=== PATIENT | male | born 1990 | race African-American/Black ===

== ENCOUNTER 2016-09-25 13:19 | Emergency (ER) | payer OTHER ==
[2016-09-25 13:59] VITALS: BP 149/82
[2016-09-25] MEDS ORDERED: cefTRIAXone VIAL(*) 250 MG VIAL IM ONE (14:49)
[2016-09-25] MEDS ORDERED: Lidocaine 1% MPF* 2 ML VIAL INJ ONE (14:50)
[2016-09-25] MEDS ORDERED: Azithromycin TAB* 250 MG PO ONE (14:50)
--- NOTE | 2016-09-25 15:07 | UC ---
Danna Colin Alok, scribed for Tunde Chapa MD on 09/25/16 at 1451 . Complaint Male HPI - HPI Summary HPI Summary: 26M presents to the [facility] seeking evaluation for clamydia. Pt states that his sexual partner was dx with clamydia one day ago. Pt denies dysuria. PMHx includes h/o heart murmur. Pt has NKDA. - History of Current Complaint Chief Complaint: UCGeneralIllness Stated Complaint: STD TESTING Time Seen by Provider: 09/25/16 14:40 Hx Obtained From: Patient Severity Initially: Moderate Severity Currently: Moderate Aggravating Factor(s): Nothing Alleviating Factor(s): Nothing Associated Signs And Symptoms: Negative: Dysuria - Allergies/Home Medications Allergies/Adverse Reactions: Allergies Allergy/AdvReac Type Severity Reaction Status Date / Time No Known Allergies Allergy Verified 05/15/12 20:19 PMH/Surg Hx/FS Hx/Imm Hx - Surgical History Surgical History: None - Family History Known Family History: Positive: Hypertension - Social History Occupation: Unemployed Lives: With Family Alcohol Use: None Substance Use Type: None Substance Use Comment - Amount & Last Used: recently quit smokig K2 (synthetic marijuana) Smoking Status (MU): Light Every Day Tobacco Smoker Type: Cigars Have You Smoked in the Last Year: Yes Review of Systems Constitutional: Negative Genitourinary: Hematuria All Other Systems Reviewed And Are Negative: Yes Physical Exam Triage Information Reviewed: Yes Appearance: Well-Appearing, No Pain Distress Vital Signs: Initial Vital Signs Temp 98.4 F 09/25/16 13:57 Pulse 76 09/25/16 13:57 Resp 16 09/25/16 13:57 BP 149/82 09/25/16 13:57 Pulse Ox 98 09/25/16 13:57 Vital Signs Reviewed: Yes Eyes: Positive: Other: - EOMI, DELON ENT: Positive: Normal ENT inspection Neck: Positive: Supple, Nontender Respiratory: Positive: Lungs clear, Normal breath sounds Cardiovascular: Positive: RRR Abdomen Description: Positive: Nontender, Soft Bowel Sounds: Positive: Present Musculoskeletal Exam: Normal Musculoskeletal: Positive: Strength Intact, ROM Intact Neurological Exam: Normal Neurological: Positive: Alert, Other: - Sensory/motor intact Psychological: Positive: Other: - affect/mood appropriate Skin: Positive: Other - warm, dry, skin color reflects adequate perfusion. blood tinged urine at the [facility] Complaint Male Course/Dx - Course Course Of Treatment: Patient medications reviewed this visit. TREATED IN CLINIC WITH AZITHROMYCIN 1GM AND ROCEPHIN 250MG IM. NO SEX FOR 7 DAYS. - Differential Dx/Diagnosis Provider Diagnoses: URETHRITIS WITH POSITIVE CHLAMYDIA PARTNER. Discharge - Discharge Plan Condition: Stable Disposition: HOME Patient Education Materials: Chlamydia (ED) Referrals: No Primary Care Phys,NOPCP [Primary Care Provider] - Additional Instructions: FOLLOW UP WITH YOUR DOCTOR. NO SEX FOR 7 DAYS. GET RECHECKED FOR ANY WORSENING OF YOUR CONDITION OR QUESTIONS OR CONCERNS. The documentation as recorded by the Danna tran Alok accurately reflects the service I personally performed and the decisions made by me, Tunde Chapa MD.
== END 2016-09-25 15:15 | disposition home or self-care (01) ==
LOC: UCEAST 13:19
DX: N34.2 Other urethritis (principal); Z20.2 Contact with and (suspected) exposure to infections with a predominantly sexual mode of transmission; Z72.0 Tobacco use
CPT/HCPCS: 87491; 87591; 99211; A9270-GY; G0463; J0696

== ENCOUNTER 2017-06-15 10:25 | Emergency (ER) | payer SELFPAY ==
[2017-06-15 10:58] VITALS: BP 137/92
[2017-06-15] MEDS ORDERED: Lidocaine 1% MPF* 2 ML VIAL INJ ONE (12:06)
[2017-06-15] MEDS ORDERED: cefTRIAXone VIAL(*) 250 MG VIAL IM ONE (12:06)
[2017-06-15] MEDS ORDERED: Azithromycin TAB* 250 MG PO ONE (12:06)
--- NOTE | 2017-06-15 12:10 | UC ---
Complaint Male HPI - HPI Summary HPI Summary: PT HAD UNPROTECTED SEX ABOUT 2 WEEKS AGO. YESTERDAY NOTICED SOME URINARY BURNING AND FREQUENCY. STATES HE HAS HAD SOME PENILE D/C WELL. IS CONCERNED ABOUT GC/CHLAMYDIA. - History of Current Complaint Chief Complaint: UCGU Stated Complaint: PERSONAL Time Seen by Provider: 06/15/17 11:55 Hx Obtained From: Patient Onset/Duration: Gradual Onset, Lasting Weeks, Still Present Timing: Constant Severity Initially: Moderate Severity Currently: Moderate Pain Intensity: 1 Pain Scale Used: 0-10 Numeric Location: Penis Character: Burning Aggravating Factor(s): Voiding Alleviating Factor(s): Nothing Associated Signs And Symptoms: Positive: Back Pain, Dysuria, Penile Discharge. Negative: Fever, Nausea, Penile Swelling - Allergies/Home Medications Allergies/Adverse Reactions: Allergies Allergy/AdvReac Type Severity Reaction Status Date / Time No Known Allergies Allergy Verified 06/15/17 10:58 Home Medications: Home Medications NK [No Home Medications Reported] 06/15/17 [History Confirmed 06/15/17] PMH/Surg Hx/FS Hx/Imm Hx Previously Healthy: Yes - Surgical History Surgical History: None Surgery Procedure, Year, and Place: denies - Family History Known Family History: Positive: Hypertension - Social History Alcohol Use: None Substance Use Type: Marijuana Substance Use Comment - Amount & Last Used: quit smokig K2 (synthetic marijuana ) in 2010 Smoking Status (MU): Former Smoker Type: Cigars Have You Smoked in the Last Year: Yes Review of Systems Constitutional: Negative Skin: Negative Respiratory: Negative Cardiovascular: Negative Gastrointestinal: Negative Genitourinary: Dysuria, Frequency, Vaginal/Penile Discharge All Other Systems Reviewed And Are Negative: Yes Physical Exam Triage Information Reviewed: Yes Appearance: Well-Appearing, No Pain Distress, Well-Nourished Vital Signs: Initial Vital Signs Temp 98.1 F 06/15/17 10:52 Pulse 99 06/15/17 10:52 Resp 18 06/15/17 10:52 BP 137/92 06/15/17 10:52 Pulse Ox 100 06/15/17 10:52 Vital Signs Reviewed: Yes Eyes: Positive: Conjunctiva Clear ENT: Positive: Hearing grossly normal Neck: Positive: Supple Respiratory: Positive: No respiratory distress, No accessory muscle use Cardiovascular: Positive: Pulses Normal Abdomen Description: Positive: Nontender, Soft. Negative: CVA Tenderness (R), CVA Tenderness (L), Distended, Guarding Male Genital Exam: Positive: Normal Genitalia. Negative: Inguinal Tenderness, Testicular Tenderness (R), Testicular Tenderness (L), Urethral Discharge Musculoskeletal: Positive: No Edema Neurological: Positive: Alert Psychological: Positive: Age Appropriate Behavior Skin: Negative: rashes Diagnostics - Laboratory Diagnostic Studies Completed/Ordered: URINE DIP SP. GR. 1.015, 1+ KETONES, 1+ PROTEIN, 1+ BILI, TRACE BLOOD Complaint Male Course/Dx - Course Course Of Treatment: URINE SENT FOR TESTING FOR GC/CHLAMYDIA. PT DECLINES TESTING FOR HIV OR SYPHILIS. EMPIRIC TX WITH AZITH AND ROCEPHIN TODAY. F/U PCP. - Differential Dx/Diagnosis Provider Diagnoses: EMPIRIC TX FOR STD/HIGH RISK SEXUAL ACTIVITY Discharge - Sign-Out/Discharge Documenting (check all that apply): Discharge - Discharge Plan Condition: Stable Disposition: HOME Patient Education Materials: Sexually Transmitted Diseases (ED) Referrals: No Primary Care Phys,NOPCP [Primary Care Provider] - Additional Instructions: You have been treated empirically with 250 mg of ceftriaxone and 1 g of azithromycin. This will cover for both gonorrhea and chlamydia. Urine has been sent for culture. No sex for at least 7 days. Notify all sexual partners or possible exposure. Use condoms in the future. You have declined testing for HIV and syphilis today. CALL THE NUMBER BELOW FOR ASSISTANCE IN ESTABLISHING WITH A PCP An additional resource available to assist in finding the appropriate physician for your health care needs is the [facility] ([facility]). You may contact them by calling [phone]. - Billing Disposition and Condition Condition: STABLE Disposition: HOME
== END 2017-06-15 12:25 | disposition home or self-care (01) ==
LOC: UCEAST 10:25
DX: Z72.51 High risk heterosexual behavior (principal); R36.9 Urethral discharge, unspecified; M54.9 Dorsalgia, unspecified; R30.0 Dysuria; R35.0 Frequency of micturition; Z11.3 Encounter for screening for infections with a predominantly sexual mode of transmission; Z87.891 Personal history of nicotine dependence
CPT/HCPCS: 81003; 87491; 87591; 96372; 99212; A9270-GY; G0463; J0696

== ENCOUNTER 2017-10-16 10:15 | Emergency (ER) | payer MEDICAID ==
[2017-10-16 10:30] VITALS: BP 129/83
[2017-10-16] MEDS ORDERED: Azithromycin TAB* 250 MG PO ONE (11:30)
[2017-10-16] MEDS ORDERED: cefTRIAXone VIAL(*) 1,000 MG VIAL IM ONE (11:31)
[2017-10-16] MEDS ORDERED: cefTRIAXone VIAL(*) 250 MG VIAL IM ONE (11:32)
[2017-10-16] MEDS ORDERED: Lidocaine 1% MPF* 2 ML VIAL INJ ONE (11:33)
[2017-10-16] MEDS ORDERED: cefTRIAXone VIAL(*) 250 MG VIAL ONE (11:35)
[2017-10-16] MEDS ORDERED: Lidocaine 1%* 5 ML VIAL ONE (11:36)
--- NOTE | 2017-10-16 12:01 | UC ---
Complaint Male HPI - HPI Summary HPI Summary: PATIENT IS CONCERNED ABOUT STD. RECEIVED ORAL SEX FROM A NEW PARTNER ABOUT A WEEK AGO. SINCE THEN HAS BEEN HAVING SOME ANXIETY AND FEELING OF DISCOMFORT IN HIS PENIS AND REPORTS SOME PENILE DISCHARGE. NO FEVER, ABDOMINAL PAIN, BACK PAIN OR DYSURIA. IS HAVING VAGINAL INTERCOURSE WITH HIS GIRLFRIEND BUT REPORTS USING CONDOMS RELIABLY FOR THE PAST FEW MONTHS (SINCE LAST BEING TX FOR HIGH RISK SEXUAL BEHAVIOR). - History of Current Complaint Chief Complaint: UCGeneralIllness Stated Complaint: PERSONAL Time Seen by Provider: 10/16/17 11:18 Hx Obtained From: Patient Onset/Duration: Gradual Onset, Lasting Days, Still Present Severity Initially: Mild Severity Currently: Mild Pain Intensity: 0 Pain Scale Used: 0-10 Numeric Location: Penis Aggravating Factor(s): Nothing Alleviating Factor(s): Nothing Associated Signs And Symptoms: Positive: Penile Discharge. Negative: Back Pain , Fever, Dysuria, Nausea - Allergies/Home Medications Allergies/Adverse Reactions: Allergies Allergy/AdvReac Type Severity Reaction Status Date / Time No Known Allergies Allergy Verified 06/15/17 10:58 PMH/Surg Hx/FS Hx/Imm Hx Previously Healthy: Yes - Surgical History Surgical History: None Surgery Procedure, Year, and Place: denies - Family History Known Family History: Positive: Hypertension - Social History Alcohol Use: None Substance Use Type: Marijuana Substance Use Comment - Amount & Last Used: quit smokig K2 (synthetic marijuana ) in 2010 Smoking Status (MU): Former Smoker Type: Cigars Have You Smoked in the Last Year: Yes Review of Systems Constitutional: Negative Skin: Negative Respiratory: Negative Cardiovascular: Negative Gastrointestinal: Negative Genitourinary: Vaginal/Penile Discharge All Other Systems Reviewed And Are Negative: Yes Physical Exam Triage Information Reviewed: Yes Appearance: Well-Appearing, No Pain Distress, Well-Nourished Vital Signs: Initial Vital Signs Temp 98 F 10/16/17 10:28 Pulse 92 10/16/17 10:28 Resp 16 10/16/17 10:28 BP 129/83 10/16/17 10:28 Pulse Ox 99 10/16/17 10:28 Laboratory Tests 10/16/17 11:34 POC Urine Color Yellow POC Urine Clarity Clear POC Urine pH 5.5 POC Ur Specif Mcbain 1.025 POC Urine Protein Negative POC Ur Glucose (UA) Negative POC Urine Ketones Negative POC Urine Blood Negative POC Urine Nitrite Negative POC Urine Bilirubin Negative POC Urine Urobilinogen 0.2 POC U Leukocyte Esteras Negative Eyes: Positive: Conjunctiva Clear ENT: Positive: Hearing grossly normal Neck: Positive: Supple Respiratory: Positive: No respiratory distress, No accessory muscle use Cardiovascular: Positive: Pulses Normal Abdomen Description: Positive: Nontender, Soft Male Genital Exam: Positive: Normal Genitalia, No Hernia. Negative: Bleeding, Epididymal Tenderness, Scrotum Tenderness (R), Scrotum Tenderness (L), Testicular Tenderness (R), Testicular Tenderness (L), Urethral Discharge Musculoskeletal: Positive: No Edema Neurological: Positive: Alert Psychological: Positive: Age Appropriate Behavior Skin: Negative: rashes Complaint Male Course/Dx - Differential Dx/Diagnosis Provider Diagnoses: HIGH RISK SEXUAL ACTIVITY/STD TX Discharge - Sign-Out/Discharge Documenting (check all that apply): Patient Departure - Discharge Plan Condition: Stable Disposition: HOME Patient Education Materials: Sexually Transmitted Diseases (ED), Safe Sex (ED) Referrals: No Primary Care Phys,NOPCP [Primary Care Provider] - Additional Instructions: You have been treated empirically with 250 mg of ceftriaxone and 1 g of azithromycin. This will cover for both gonorrhea and chlamydia. Urine has been sent for culture. No sex for at least 7 days. Notify all sexual partners of possible exposure. Use condoms in the future. You have declined testing for HIV and syphilis today. CALL THE NUMBER BELOW FOR ASSISTANCE IN ESTABLISHING WITH A PCP An additional resource available to assist in finding the appropriate physician for your health care needs is the [facility]erral [facility] ([facility]). You may contact them by calling [phone]. [facility] Address: [address] [place] [address] - Billing Disposition and Condition Condition: STABLE Disposition: Home
== END 2017-10-16 11:44 | disposition home or self-care (01) ==
LOC: UCEAST 10:15
DX: Z72.51 High risk heterosexual behavior (principal); N48.89 Other specified disorders of penis; R36.9 Urethral discharge, unspecified; Z87.891 Personal history of nicotine dependence
CPT/HCPCS: 81003; 87491; 87591; 96372; 99212; A9270-GY; G0463; J0696

== ENCOUNTER 2017-12-31 16:59 | Emergency (ER) | payer MEDICAID, OTHER ==
[2017-12-31 17:49] VITALS: BP 133/70
--- NOTE | 2017-12-31 17:53 | UC ---
Abdominal Pain Male HPI - HPI Summary HPI Summary: 27 yo male presents with diarrhea and nausea. He tells me that yesterday he " ate and drank a lot of different foods". Last night developed some loose stool. Today has had nausea and diarrhea with generalized abdominal cramping. He is eating and drinking well. His girlfriend with him today tells me that this has been an issue for many months. He will eat certain foods and the next day have generalized abdominal pain and diarrhea. She has told him to eat better and drink more water and to keep a food diary, but he never has. Currently he thinks it may be the milk that he drank yesterday that is causing his symptoms as he might be lactose intolerant. Denies fever, chills, SOB, chest pain, dysuria. - History of Current Complaint Chief Complaint: UCGI Stated Complaint: VOMITING, HEADACHE, DIARRHEA Time Seen by Provider: 12/31/17 17:53 Hx Obtained From: Patient Timing: Constant Severity Initially: Moderate Severity Currently: Moderate Pain Intensity: 6 Pain Scale Used: 0-10 Numeric - Allergies/Home Medications Allergies/Adverse Reactions: Allergies Allergy/AdvReac Type Severity Reaction Status Date / Time No Known Allergies Allergy Verified 12/31/17 17:41 PMH/Surg Hx/FS Hx/Imm Hx - Additional Past Medical History Additional PMH: None - Surgical History Surgical History: None Surgery Procedure, Year, and Place: denies - Family History Known Family History: Positive: Hypertension - Social History Occupation: Employed Full-time Lives: With Family Alcohol Use: None Substance Use Type: Marijuana Substance Use Comment - Amount & Last Used: quit smokig K2 (synthetic marijuana ) in 2010 Smoking Status (MU): Former Smoker Type: Cigars Have You Smoked in the Last Year: Yes Review of Systems Constitutional: Negative Skin: Negative Eyes: Negative ENT: Negative Respiratory: Negative Cardiovascular: Negative Gastrointestinal: Abdominal Pain, Diarrhea, Nausea Genitourinary: Negative Neurovascular: Negative Neurological: Negative Psychological: Negative All Other Systems Reviewed And Are Negative: Yes Physical Exam - Summary Physical Exam Summary: GENERAL: NAD. WDWN. No pain distress. SKIN: No rashes, sores, lesions, or open wounds. NECK: Supple. Nontender. No lymphadenopathy. CHEST: CTAB. No r/r/w. No accessory muscle use. Breathing comfortably and in no distress. CV: RRR. Without m/r/g. Pulses intact. Cap refill <2seconds ABDOMEN: Generalized mild TTP. Soft. No distention or guarding. No CVA tenderness. Bowel sounds present NEURO: Alert. PSYCH: Age appropriate behavior. Triage Information Reviewed: Yes Vital Signs: Initial Vital Signs Temp 98.4 F 12/31/17 17:41 Pulse 85 12/31/17 17:41 Resp 18 12/31/17 17:41 BP 133/70 12/31/17 17:41 Pulse Ox 98 12/31/17 17:41 Vital Signs Reviewed: Yes Abd Pain Male Course/Dx - Course Course Of Treatment: Suspect gastroenteritis due to viral or food intolerance. Strongly encouraged him to keep a food journal to try and pin point foods that upset his stomach. For his current symptoms, will try him with zofran and omeprazole and have him f/u if his symptoms persist or worsen. - Differential Dx/Clinical Impression Provider Diagnoses: Gastroenteritis Discharge - Sign-Out/Discharge Documenting (check all that apply): Patient Departure All imaging exams completed and their final reports reviewed: No Studies - Discharge Plan Condition: Stable Disposition: HOME Prescriptions: Omeprazole CAP* [Prilosec CAP* 20 MG] 20 mg PO DAILY #30 cap. Ondansetron HCl [Zofran 4 MG TAB] 4 mg PO Q8H PRN #12 tab PRN Reason: Nausea Patient Education Materials: Lactose-Controlled Diet (ED), Acute Diarrhea (ED) , Nutrition Tips for Relief of Diarrhea (ED) Forms: *Work Release Referrals: No Primary Care Phys,NOPCP [Primary Care Provider] - Additional Instructions: If you develop a fever, shortness of breath, chest pain, new or worsening symptoms - please call your PCP or go to the ED. 1) If your abdominal pain or symptoms worsen - please go to the ER for further evaluation - Billing Disposition and Condition Condition: STABLE Disposition: Home
== END 2017-12-31 18:10 | disposition home or self-care (01) ==
LOC: UCCORT 16:59
DX: K52.9 Noninfective gastroenteritis and colitis, unspecified (principal); F12.90 Cannabis use, unspecified, uncomplicated; Z87.891 Personal history of nicotine dependence
CPT/HCPCS: 99212; G0463

== ENCOUNTER 2018-02-11 20:59 | Emergency (ER) | payer OTHER ==
[2018-02-11 21:13] VITALS: BP 165/91
[2018-02-11] MEDS ORDERED: Azithromycin TAB* 250 MG PO ONE (21:31)
[2018-02-11] MEDS ORDERED: cefTRIAXone VIAL(*) 250 MG VIAL IM ONE (21:31)
--- NOTE | 2018-02-11 21:45 | UC ---
Complaint Male HPI - HPI Summary HPI Summary: 27 year old male presents with 1 week history of left testicular pain and swelling. States pain is 4/10, describes as aching that waxes and wanes in intensity. States very tender if touched. States he had unprotected oral sex about 2 weeks ago but denies any recent unprotected vaginal or anal sex. States he has noticed some "dry skin" around the foreskin of his penis. Denies fever, chills, abdominal pain, back/flank pain, nausea, vomiting, dysuria, frequency, urgency, hematuria, hematospermia, penile drainage or sores. - History of Current Complaint Chief Complaint: UCGU Stated Complaint: URINARY COMPLAINT,NAUSEA Time Seen by Provider: 02/11/18 21:14 Hx Obtained From: Patient Onset/Duration: Gradual Onset, Lasting Days - 7 Severity Currently: Moderate Pain Intensity: 6 Location: Testicle - Left - Allergies/Home Medications Allergies/Adverse Reactions: Allergies Allergy/AdvReac Type Severity Reaction Status Date / Time No Known Allergies Allergy Verified 02/11/18 21:13 Home Medications: Home Medications NK [No Home Medications Reported] 02/11/18 [History Confirmed 02/11/18] PMH/Surg Hx/FS Hx/Imm Hx Previously Healthy: Yes - Denies significant PMH - Surgical History Surgical History: None Surgery Procedure, Year, and Place: denies - Family History Known Family History: Positive: Hypertension - Social History Occupation: Employed Full-time Lives: Alone Alcohol Use: None Substance Use Type: Marijuana Substance Use Comment - Amount & Last Used: quit smokig K2 (synthetic marijuana ) in 2010 Smoking Status (MU): Former Smoker Type: Cigars Have You Smoked in the Last Year: Yes Review of Systems All Other Systems Reviewed And Are Negative: Yes Constitutional: Negative: Fever, Chills Skin: Positive: Other - See HPI. Negative: Rash Gastrointestinal: Negative: Abdominal Pain, Vomiting, Diarrhea, Nausea Genitourinary: Positive: Other - Left testicular pain and swelling. Negative: Dysuria, Hematuria, Frequency, Urgency, Vaginal/Penile Burning, Vaginal/Penile Discharge, Ulceration/Lesion Is Patient Immunocompromised?: No Physical Exam - Summary Physical Exam Summary: GENERAL APPEARANCE: Well developed, well nourished, alert and cooperative, and appears to be in no acute distress. CARDIAC: Normal S1 and S2. No S3, S4 or murmurs. Rhythm is regular. There is no peripheral edema, cyanosis or pallor. Extremities are warm and well perfused. Capillary refill is less than 2 seconds. LUNGS: Clear to auscultation and percussion without rales, rhonchi, wheezing or diminished breath sounds. ABDOMEN: Positive bowel sounds. Soft, nondistended, nontender. No guarding or rebound. No masses or hepatosplenomegally. No CVA tenderness. GENITALIA: Uncircumcised. Normal penis without lesions, discharge, or eruptions. Right testicle unremarkable. Mild-moderate left testicular enlargement compared to right. Mild posterior tenderness. No masses noted. Cremasteric reflex present bilaterally. MUSKULOSKELETAL: ROM intact to all extremities. No joint erythema or tenderness. Normal muscular development. Normal gait. EXTREMITIES: No significant deformity or joint abnormality. No edema. Peripheral pulses intact. SKIN: Skin normal color, texture and turgor with no lesions or eruptions. Triage Information Reviewed: Yes Vital Signs: Initial Vital Signs Temp 97.9 F 02/11/18 21:10 Pulse 104 02/11/18 21:10 Resp 17 02/11/18 21:10 BP 165/91 02/11/18 21:10 Pulse Ox 100 02/11/18 21:10 Vital Signs Reviewed: Yes Diagnostics - Laboratory Diagnostic Studies Completed/Ordered: POC UA 1+ bilirubin otherwise normal. Urine culture, GC & chlamydia PCR pending. Complaint Male Course/Dx - Course Course Of Treatment: 27 year old male presents with 1 week history of left testicular pain and swelling. States pain is 4/10, describes as aching that waxes and wanes in intensity. States very tender if touched. States he had unprotected oral sex about 2 weeks ago but denies any recent unprotected vaginal or anal sex. States he has noticed some "dry skin" around the foreskin of his penis. Denies fever, chills, abdominal pain, back/flank pain, nausea, vomiting, dysuria, frequency, urgency, hematuria, hematospermia, penile drainage or sores. Afebrile. VSS. Exam revealed mild-moderate left testicular enlargement compared to right, mild posterior left tesicular tenderness with no masses and intact cremasteric reflex bilaterally. UA 1+ bilirubin otherwise negative. Urine culture and GC/chlamydia pending. Patient declined testing for other STIs. Will treat empiracally with ceftriaxone 250 mg IM and azithromycin 1 gm PO for epididymitis. Discussed with patient that I salo fully rule out a testicular torsion therefore he is electing to be discharged to the ED for US. Warning symptoms reviewed. Verbalizes understanding and agrees with POC. - Differential Dx/Diagnosis Differential Diagnosis/HQI/PQRI: Epididymitis, Testicular Torsion, Urinary Tract Infection, Other - STI Provider Diagnosis: Testicular pain, left Discharge - Sign-Out/Discharge Documenting (check all that apply): Patient Departure All imaging exams completed and their final reports reviewed: No Studies - Discharge Plan Condition: Stable Disposition: HOME-RECOMMEND TO ED Patient Education Materials: Testicle Pain (ED) Referrals: No Primary Care Phys,NOPCP [Primary Care Provider] - [facility] REFERRAL [Outside] Additional Instructions: The urine test performed in the clinic tonight did not show any evidence of infection. I suspect that your testicular pain and swelling is from a condition called epididymitis however I cannot rule out the possibility that this may be a testicular torsion (twisting of the testicle that cuts off the blood supply) therefore I am recommending that you go to the emergency room for evaluation. We are sending the urine for culture to see if any bacteria grow out as well as the testing for gonorrhea and chlamydia. We will contact you if any of these are positive. You have declined testing for HIV or syphilis. We gave you a shot of antibiotic called ceftriaxone and given you a dose of azithromycin in the clinic to treat for the most common causes of epididymitis. Go directly to the emergency room for further evaluation of your testicular pain. Do NOT eat or drink anything until you have been evaluated in the emergency room. Your blood pressure was elevated in the clinic tonight. It is recommended that you have this rechecked by a primary care provider within 4 weeks. I have provided you with the number for the [facility] Physician Referral Service to assist you with establishing with a primary care provider. - Billing Disposition and Condition Condition: STABLE Disposition: Home-Recommend to ED
== END 2018-02-11 21:51 | disposition home health service (06) ==
LOC: UCCORT 20:59
DX: N50.812 Left testicular pain (principal); Z87.891 Personal history of nicotine dependence
CPT/HCPCS: 81003; 87086; 87491; 87591; 96372; 99212; A9270-GY; G0463; J0696

== ENCOUNTER 2018-07-12 11:19 | Emergency (ER) | payer OTHER ==
[2018-07-12 11:50] VITALS: BP 124/69
--- NOTE | 2018-07-12 12:11 | UC ---
Complaint Male HPI - HPI Summary HPI Summary: 27-year-old male comes in with a chief complaint of some left testicular swelling and pain and also some burning with urination. He said the left testicular pain and swelling on an off for several months. It's worse with any Trauma. Had some burning with urination the last week or so. No fevers or chills. He reports he had an ultrasound testicle in the past that showed cysts. He has not followed up with urology. No complaint of any abdominal pain. Patient is sexually active. - History of Current Complaint Chief Complaint: UCGU Stated Complaint: URINARY/PERSONAL Time Seen by Provider: 07/12/18 11:57 Pain Intensity: 0 - Allergies/Home Medications Allergies/Adverse Reactions: Allergies Allergy/AdvReac Type Severity Reaction Status Date / Time No Known Allergies Allergy Verified 07/12/18 11:45 Home Medications: Home Medications Acetaminophen [Acetaminophen Extra Strength] 1,000 mg PO Q6H PRN 07/12/18 [ History Confirmed 07/12/18] PMH/Surg Hx/FS Hx/Imm Hx Previously Healthy: Yes - Surgical History Surgical History: None Surgery Procedure, Year, and Place: denies - Family History Known Family History: Positive: Hypertension - Social History Alcohol Use: Rare Substance Use Type: None Substance Use Comment - Amount & Last Used: quit smokig K2 (synthetic marijuana ) in 2010 Smoking Status (MU): Former Smoker Type: Cigars Have You Smoked in the Last Year: Yes When Did the Patient Quit Smoking/Using Tobacco: ~2018 Review of Systems All Other Systems Reviewed And Are Negative: Yes Constitutional: Positive: Negative Skin: Positive: Negative Eyes: Positive: Negative ENT: Positive: Negative Respiratory: Positive: Negative Cardiovascular: Positive: Negative Gastrointestinal: Positive: Negative Genitourinary: Positive: Dysuria, Other - SEE HPI. Negative: Vaginal/Penile Discharge Motor: Positive: Negative Neurovascular: Positive: Negative Musculoskeletal: Positive: Negative Neurological: Positive: Negative Psychological: Positive: Negative Is Patient Immunocompromised?: No Physical Exam Triage Information Reviewed: Yes Appearance: Well-Appearing, No Pain Distress, Well-Nourished Vital Signs: Initial Vital Signs Temp 98.2 F 07/12/18 11:41 Pulse 82 07/12/18 11:41 Resp 18 07/12/18 11:41 BP 124/69 07/12/18 11:41 Pulse Ox 100 07/12/18 11:41 Vital Signs Reviewed: Yes Eye Exam: Normal Eyes: Positive: Conjunctiva Clear Neck: Positive: Supple Respiratory: Positive: Lungs clear, Normal breath sounds, No respiratory distress Cardiovascular: Positive: RRR Abdomen Description: Positive: Soft. Negative: Nontender, CVA Tenderness (R), CVA Tenderness (L) Male Genital Exam: Positive: Testicular Tenderness (L) - MILDLY ENLARGED COMPARED WITH RIGHT TESTICLE. Negative: Inguinal Tenderness, Lesions, Urethral Discharge Musculoskeletal Exam: Normal Musculoskeletal: Positive: Strength Intact, ROM Intact Neurological: Positive: Alert, Muscle Tone Normal Psychological Exam: Normal Psychological: Positive: Age Appropriate Behavior Skin Exam: Normal Complaint Male Course/Dx - Course Course Of Treatment: Patient Name: RICKI HAWKINS Medical Record#: [id number] Ordering Physician: Tunde Chapa MD Acct.#: [id number] : 1990 Age: 27 Sex: M Location: [facility] Exam Date: 07/12/18 1207 ADM Status: [facility] ER Order Information: US TESTICULAR Accession Number: [id number] CPT: 50128 Indication: Swelling of the left testicle. Real-time sonography of the scrotum was performed. The right testis measures 5.0 x 2.0 x 3.1 cm. No intratesticular masses are noted. Normal flow is noted in the right testis. The epididymis measures 1.3 x 1.2 cm with no hydrocele. The left testis measures 5.0 x 2.4 x 3.4 cm. No intratesticular masses are noted. Normal flow in the left testis is noted. The left epididymis measures 1.1 x 1.3 cm. Small amount of fluid surrounds the left testis. Thrombosed vessels are noted in the left lateral aspect of the scrotum which may represent thrombosed vessels in the pampiniform plexus. IMPRESSION: No intratesticular masses or torsion are noted. Thrombosed vessels presumably in the left pampiniform plexus. <Electronically signed by Lilibeth eMneses MD in OV> 07/12/18 3661 I discussed the ultrasound results with the patient. I discussed the results with the urologist Dr. Connor. His recommendations are supportive underwear, taking a full size aspirin 325 mg once a day and follow-up with urology. Patient was given Rocephin and azithromycin here in clinic. Urinalysis did not indicate urinary tract infection. GC chlamydia results are pending. If the patient worsens he is to get reevaluated sooner. - Differential Dx/Diagnosis Provider Diagnosis: Left varicocele, Pain in left testicle, Dysuria Discharge - Sign-Out/Discharge Documenting (check all that apply): Patient Departure All imaging exams completed and their final reports reviewed: Yes - Discharge Plan Condition: Stable Disposition: HOME Patient Education Materials: Varicocele (ED), Testicle Pain (ED), Dysuria (ED) Referrals: [facility] [place] [facility]FERR[facility] [Outside] Taco Cruz MD [Medical Doctor] - Fidel Connor MD [Medical Doctor] - Additional Instructions: FOLLOW UP WITH UROLOGY. WEAR TIGHT FITTING UNDERWEAR THAT GIVE SUPPORT. TAKE A FULL ASPIRIN 325MG ONCE A DAY. GET RECHECKED SOONER IF YOUR CONDITION WORSENS; PAIN, FEVER, YOU FEEL ILL OR ANY QUESTIONS OR CONCERNS. - Billing Disposition and Condition Condition: STABLE Disposition: Home
[2018-07-12] MEDS ORDERED: Azithromycin TAB* 250 MG PO ONE (13:00)
[2018-07-12] MEDS ORDERED: cefTRIAXone VIAL(*) 250 MG VIAL IM ONE (13:01)
[2018-07-12] MEDS ORDERED: Lidocaine 1%* 5 ML VIAL INJ ONE (13:04)
[2018-07-15 13:19] LABS: Neisseria gonorrhoeae (GC) RNA Negative (Negative)
== END 2018-07-12 13:39 | disposition home or self-care (01) ==
LOC: UCCORT 11:19
DX: I86.1 Scrotal varices (principal); N50.812 Left testicular pain; R30.0 Dysuria; Z87.891 Personal history of nicotine dependence
CPT/HCPCS: 76870; 81003; 87491; 87591; 96372; 99212; A9270-GY; G0463; J0696

== ENCOUNTER 2019-04-19 17:33 | Emergency (ER) | payer MEDICAID, OTHER ==
[2019-04-19 17:48] VITALS: BP 126/60
--- NOTE | 2019-04-19 17:50 | UC ---
[facility] HPI - HPI Summary HPI Summary: 28 year old male presents with complaint of left lower wisdom tooth pain for two weeks with associated foul taste in his mouth. He is in the process of securing a dentist. Denies associated fever not chills. - History of Current Complaint Chief Complaint: UCDentalProblem Stated Complaint: LEFT SIDE DENTAL/JAW PAIN Time Seen by Provider: 04/19/19 17:41 Hx Obtained From: Patient Onset/Duration: Gradual Onset, Lasting Weeks - two Pain Intensity: 10 - Allergies/Home Medications Allergies/Adverse Reactions: Allergies Allergy/AdvReac Type Severity Reaction Status Date / Time No Known Allergies Allergy Verified 04/19/19 17:41 PMH/Surg Hx/FS Hx/Imm Hx Previously Healthy: Yes - Surgical History Surgical History: None Surgery Procedure, Year, and Place: denies - Family History Known Family History: Positive: Hypertension - Social History Alcohol Use: None Substance Use Type: None Substance Use Comment - Amount & Last Used: quit smokig K2 (synthetic marijuana ) in 2010 Smoking Status (MU): Former Smoker Type: Cigars Have You Smoked in the Last Year: Yes When Did the Patient Quit Smoking/Using Tobacco: ~2018 Review of Systems All Other Systems Reviewed And Are Negative: Yes Constitutional: Positive: Negative Skin: Positive: Negative Eyes: Positive: Negative ENT: Positive: Other - tenderness lower jaw Respiratory: Positive: Negative Cardiovascular: Positive: Negative Gastrointestinal: Positive: Negative Genitourinary: Positive: Negative Motor: Positive: Negative Neurovascular: Positive: Negative Musculoskeletal: Positive: Negative Neurological/Mental Status: Positive: Headache Psychological: Positive: Negative Is Patient Immunocompromised?: No Physical Exam Triage Information Reviewed: Yes Appearance: Well-Appearing Vital Signs: Initial Vital Signs Temp 98.2 F 04/19/19 17:42 Pulse 83 04/19/19 17:42 Resp 18 04/19/19 17:42 BP 126/60 04/19/19 17:42 Pulse Ox 99 04/19/19 17:42 Vital Signs Reviewed: Yes Eye Exam: Normal ENT Exam: Normal Dental: Positive: Percussion Tenderness @ - left posterior wisdom tooth, Cervical Lymphadenopathy - left submandibular. Negative: Gross Decay/Caries @, Abscess @, Cellulitis @ Neck: Positive: Supple, Nontender Respiratory: Positive: Lungs clear, Normal breath sounds. Negative: Crackles, Rhonchi, Wheezing Cardiovascular: Positive: RRR, No Murmur Abdomen Description: Positive: Nontender, Soft Musculoskeletal Exam: Normal Neurological Exam: Normal Psychological Exam: Normal Skin Exam: Normal Dental Complaint Course/Dx - Differential Dx/Diagnosis Provider Diagnosis: Dental infection Discharge ED - Sign-Out/Discharge Documenting (check all that apply): Patient Departure All imaging exams completed and their final reports reviewed: No Studies - Discharge Plan Condition: Stable Disposition: HOME Prescriptions: Penicillin VK 500 MG TAB(NF) [Penicillin VK 500 mg Tab] 500 mg PO QID 10 Days # 40 tab Patient Education Materials: Toothache (ED) Referrals: No Primary Care Phys,NOPCP [Primary Care Provider] - Additional Instructions: Take antibiotic as prescribed, salt water gargles and ibuprofen as needed for pain. Follow-up with a dentist for definitive treatment. - Billing Disposition and Condition Condition: STABLE Disposition: Home
== END 2019-04-19 18:08 | disposition home or self-care (01) ==
LOC: UCCORT 17:33
DX: K04.7 Periapical abscess without sinus (principal); R51 Headache; Z87.891 Personal history of nicotine dependence
CPT/HCPCS: 99212; G0463